=== PATIENT | male | born 1940 | race Caucasian/White ===

== ENCOUNTER 2017-02-22 16:42 | Inpatient (IN) | payer MEDICARE ==
[2017-02-22] MEDS ORDERED: ISOVUE-370 76%-LOCM 1 ML ONE (17:24)
[2017-02-22] MEDS ORDERED: Iopamidol 370 76% 50 ML VIAL FS ONE (17:24)
[2017-02-22 17:50] LABS: #Eosinphils 0.2 thou/uL (0.0-0.7); #Lymphocytes 1.9 thou/uL (1.20-3.40); #Monocytes 1.1 thou/uL (0.11-0.59); #Neutrophils 5.2 thou/uL (1.40-6.50); %Basophils 0.2 % (0.0-1.0); %Monocytes 12.9 % (0.0-10.0); Hematocrit 40.8 % (42.0-52.0); Mean Platelet Volume 7.4 fL (7.4-10.4); White Blood Cell (WBC) Count 8.4 thou/uL (4.8-10.8)
[2017-02-22 18:11] LABS: Lactic Acid - Sepsis 0.8 mmol/L (0.5-2.2)
[2017-02-22 18:15] LABS: ALT (SGPT) 16 U/L (8-55); AST (SGOT) 21 U/L (5-34); Alkaline Phosphatase 78 U/L (40-150); Anion Gap 12 mmol/L (10-20); BUN (Urea Nitrogen) 17 mg/dL (8.4-25.7); Bilirubin, Total 0.7 mg/dL (0.2-1.2); Calc. Creatinine Clearance 0 mL/min (70-130); Calcium 9.3 mg/dL (7.8-10.44); Carbon Dioxide 24 mmol/L (23-31); Chloride 101 mmol/L (98-107); Estimated GFR-MDRD 68; Globulin 3.1 g/dL (2.4-3.5); Protein, Total 7.3 g/dL (5.8-8.1)
--- NOTE | 2017-02-22 18:45 | ULT ---
ABDOMINAL ULTRASOUND: History: Palpable swelling, umbilical region, strangulated hernia. Technique: Multiple longitudinal and transverse images of the abdomen obtained using multihertz curvi linear transducer. Real-time, color flow, and spectral waveform doppler analysis demonstrates fatty c hanges seen in the liver. The gallbladder is unremarkable. The common bile duct is abnormal size brittany uring 5 mm. There is a large area of soft tissue density in the umbilical region compatible with herniated bowel. Some fluid is seen surrounding the bowel loops. I do not see definite evidence of blood flow. Hernia chriss and strangulated intestine cannot be excluded. IMPRESSION: Areas of soft tissue density are compatible with bowel. Rather this is small bowel or colon I cannot determine. Definitive blood flow is also not visualized. POS: [facility]
--- NOTE | 2017-02-22 19:02 | RAD ---
AP CHEST: FINDINGS: The lungs are well aerated. No evidence of active intrathoracic disease seen. No evidence of effusion s, pneumonia or pneumothorax is seen. IMPRESSION: Unremarkable AP chest. POS: [facility]
[2017-02-22 19:21] LABS: Bilirubin Negative (Negative); Blood, Urine Negative (Negative); Glucose, Urine (Dipstick) Negative (Negative); Ketone, Urine Negative (Negative); Nitrite Negative (Negative); Protein, Urine (Dipstick) Negative (Neg-Trace); Urobilinogen 0.2 mg/dL (0.2-1.0)
--- NOTE | 2017-02-22 21:29 | CT ---
CT ABDOMEN AND PELVIS WITH CONTRAST: Comparison: None. History: Abdominal pain. History of umbilical hernia and cellulitis around the hernia. Technique: Multiple contiguous axial images were obtained in a CT of the abdomen and pelvis with cont rast. PO contrast was administered. Coronal reformats were performed. FINDINGS: There is a 2.5 cm fat containing umbilical hernia. Stranding change is seen within the fat of this he rnia that extends into the abdomen. There is stranding change in the soft tissues surrounding the umb ilicus. No free air or free fluid are seen in the abdomen or pelvis. There are cysts in both kidneys measuring up to 5.5 cm in size. The liver, gallbladder, adrenal gland s, spleen and pancreas are unremarkable. There is scattered diverticula in the colon. The small bowel is normal in appearance. The appendix is normal. No abdominal or pelvic lymphadenopathy are seen. Atherosclerotic calcifications are seen in the aorta. IMPRESSION: 1. Fat containing umbilical hernia has surrounding inflammatory changes. This could represent an inca rcerated or strangulated fat containing hernia. There is no evidence of bowel obstruction. 2. Diverticulosis. 3. Bilateral renal cysts. POS: [facility]
[2017-02-22] MEDS ORDERED: Ondansetron ODT 4 MG TAB SL PRN (22:29)
[2017-02-22] MEDS ORDERED: Ondansetron HCl/PF 4 MG/2 ML Vial IVP PRN (22:29)
[2017-02-22] MEDS ORDERED: Acetaminophen 325 MG TAB PO PRN (22:29)
[2017-02-22] MEDS ORDERED: Sodium Chloride 0.9% 1,000 ML IV SCH (22:30)
[2017-02-22 23:10] VITALS: BMI 36.2
[2017-02-23] MEDS: CEFAZOLIN 1 GM, Syringe 2.5 ML in Sterile Water 7.5 ML SLOW IVP SCH ×4 (00:38→20:04)
[2017-02-23] MEDS ORDERED: Clopidogrel Bisulfate 75 MG TAB ONE (05:26)
[2017-02-23] MEDS ORDERED: FLU VACC TS2017-18 (>65YR) 0.5 ML SYRINGE IM ONE (09:00)
--- NOTE | 2017-02-23 09:01 | PRG ---
DATE OF SERVICE: 02/23/2017 SUBJECTIVE: This morning the patient is doing much better. Decreased belly pain. However, still te nder. OBJECTIVE: VITAL SIGNS: Temperature 98.1, pulse 80, respirations 20, pulse ox 94, blood pressure 144/77. HEART: Regular rate and rhythm. LUNGS: Clear. ABDOMEN: Soft. Moderate tenderness, tight umbilical hernia. LABORATORY: White count 8.4, H&H of 13 and 40. Sodium 133, potassium 4.3, creatinine 1.07, BUN 17. ASSESSMENT: 1. Incarcerated umbilical hernia with fat containing tissue, no bowel present. 2. Cellulitis of the abdominal wall. PLAN: 1. To the OR this morning by Dr. Thibodeaux. 2. Ancef 1 gram q.6h. 3. Continue to follow.
[2017-02-23] MEDS ORDERED: Ondansetron HCl/PF 4 MG/2 ML Vial IVP PRN (09:29)
[2017-02-23] MEDS ORDERED: Sodium Chloride 0.9% 1,000 ML IV SCH (09:30)
[2017-02-23] MEDS ORDERED: CEFAZOLIN/Water 2 GM/20 ML SYRINGE SLOW IVP SCH (09:30)
[2017-02-23] MEDS ORDERED: Fentanyl 100 MCG/2 ML VIAL ONE ×2 (10:46→15:59)
--- NOTE | 2017-02-23 11:33 | HP ---
DATE OF SERVICE: 02/23/2017 CHIEF COMPLAINT: Umbilical hernia. HISTORY OF PRESENT ILLNESS: The patient is a 76-year-old white male. He has had a known umbilical h ernia for quite a while. About 3 days ago, he developed protrusion of the umbilicus with discomfort. He had no nausea or vomiting. He actually golfed after onset of his discomfort. Yesterday, he pre sented to his primary care physician who saw the area noted some surrounding erythema. Patient denie d any nausea or vomiting. There was also a recent history of hematuria. Patient was referred to the emergency room. Laboratory studies and radiologic evaluation was performed. CBC revealed normal white blood cell count of 8.4, hemoglobin 13.4, normal differential. Chemistry p naomi was unremarkable with a normal lactate level. CT scan revealed evidence of a fat containing umb ilical hernia with surrounding stranding both within the abdominal wall and intra-abdominal consisten t with inflammatory change. Patient notes persistent discomfort, but nothing any worse. He denies any diffuse abdominal discomfo rt or vomiting. He has had no fevers. PAST MEDICAL HISTORY: 1. Hypertension. 2. Hypercholesterolemia. 3. Obesity. 4. Gastroesophageal reflux disease. PAST SURGICAL HISTORY: 1. Left total knee replacement. 2. Transurethral resection of the prostate. 3. Right inguinal hernia repair long time ago. CURRENT MEDICATIONS: Losartan, a statin medication, and Protonix. ALLERGIES: ZITHROMAX. PERSONAL/SOCIAL HISTORY: He is and is present at bedside. He has 1 child. 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 REVIEW OF SYSTEMS: Otherwise, unremarkable. FAMILY HISTORY: Noncontributory. PHYSICAL EXAMINATION: VITAL SIGNS: Temperature is 98.0, pulse 71, blood pressure 143/77. GENERAL: He is a well-developed, well-nourished, pleasant white male, resting in bed, in no acute di stress. He is alert and oriented x3. HEAD, EYES, EARS, NOSE AND THROAT: Unremarkable. NECK: Supple, without mass or tenderness. LUNGS: Clear to auscultation throughout. CARDIAC: Regular rate and rhythm without murmur. ABDOMEN: Soft and protuberant. He has an obvious umbilical hernia with mild surrounding erythema. There is a skin lesion to the left of the umbilicus that he states it has been taped where he tried t o tape a cover over his umbilical hernia. EXTREMITIES: Unremarkable. ASSESSMENT: Patient with incarcerated umbilical hernia. PLAN: Open repair with mesh. Mesh utilization will depend upon any infectious appearance at the gina e of surgery. If he has incarcerated or strangulated tissue/fat, this may preclude placement of mesh . Discussed all of this with the patient and his , they understand and agree to proceed. They u nderstand there is a small chance that we will not be able to salvage the umbilicus depending upon ap pearance at the time of surgery.
--- NOTE | 2017-02-23 15:10 | HP ---
HISTORY OF PRESENT ILLNESS: This is a 76-year-old white male with a history of blood in his urine. He was doing well until approximately 2 weeks ago he was developing blood-tinged urine. Lately, he h as been developing clots in his urine. He has had no difficulty urinating, but larger clots are form ing. He has no fever, nausea, vomiting. However, shortly before leaving the office, he shows his ab domen which he states has become tender. Upon examining his abdomen, it was significant for most lik aurea a strangulated umbilical hernia. PAST MEDICAL HISTORY: Hypertension, hyperlipidemia, reflux, prostatitis, hemorrhoids. PAST SURGICAL HISTORY: Hernia, colonoscopy, prostatectomy for BPH by Dr. Villarreal. FAMILY HISTORY: Mother with stomach cancer. A brother with brain aneurysm. Maternal grandmother wi th diabetes and multiple uncles with heart disease. SOCIAL HISTORY: He does not smoke. 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 He drinks socially. MEDICATIONS: Chondroitin daily, Centrum daily, aspirin 81 mg daily, omeprazole 20 daily, Flonase kenisha ly, Zyrtec daily, Lipitor 10 daily, and losartan 50 daily. ALLERGIES: ZITHROMAX. PHYSICAL EXAMINATION: VITAL SIGNS: Blood pressure 130/70, temperature 100, blood pressure 130/70, height 71, pulse ox 97. GENERAL: The patient in no acute distress. HEENT: Clear. HEART: Regular rate and rhythm. LUNGS: Clear. ABDOMEN: Tends approximately 15 cm circumferential area of erythema around the umbilicus and the umb ilicus is approximately 5 cm with an umbilical hernia. EXTREMITIES: With no edema. ASSESSMENT: 1. Acute abdomen. 2. Strangulated umbilical hernia, most likely possibly omental as opposed to intestinal. 3. Cellulitis of the abdominal wall. 4. Gross hematuria. PLAN: 1. The patient referred to the emergency room. 2. Discuss with Dr. Thibodeaux. 3. Most likely has a strangulated umbilical hernia which will require surgery. We must rule out oth er etiology as well.
[2017-02-23] MEDS ORDERED: Bupivacaine/Epinephrine 0.25% 30 ML VIAL ONE (15:53)
[2017-02-23] MEDS ORDERED: CEFAZOLIN/Water 2 GM/20 ML SYRINGE ONE (16:10)
[2017-02-23] MEDS ORDERED: Succinylcholine Chloride 20 MG/ML 10 ml SYRINGE FS ONE (16:12)
[2017-02-23] MEDS ORDERED: Lidocaine 1% PF 5 ML VIAL ONE (16:12)
[2017-02-23] MEDS ORDERED: Dexamethasone 20 MG/5 ML VIAL ONE (16:12)
[2017-02-23] MEDS ORDERED: Ondansetron HCl/PF 4 MG/2 ML Vial ONE (16:12)
[2017-02-23] MEDS ORDERED: Propofol 200 MG/20 ML VIAL ONE (16:12)
[2017-02-23] MEDS ORDERED: Glycopyrrolate 0.2 MG/ML 5 ML SYRINGE ONE (16:12)
[2017-02-23] MEDS ORDERED: Bacitracin Zinc Ointment 30 gm TUBE ONE (17:14)
[2017-02-23] MEDS ORDERED: Losartan Potassium 25 MG TAB PO SCH (19:15)
[2017-02-23 19:48] VITALS: BP 186/84; TEMP 98.1
--- NOTE | 2017-02-23 20:17 | OP ---
DATE OF PROCEDURE: 02/23/2017 PREOPERATIVE DIAGNOSIS: Incarcerated umbilical hernia with surrounding cellulitis. POSTOPERATIVE DIAGNOSIS: Incarcerated umbilical hernia with surrounding cellulitis with devasculariz ed segment of omental fat. OPERATION PERFORMED: Repair of incarcerated umbilical hernia without mesh. SURGEON: Amish Thibodeaux M.D. ANESTHESIA: General endotracheal. INDICATIONS: The patient is a 76-year-old obese white male. He presents with an obvious protruding and inflamed umbilical hernia. The external umbilicus measures about 4-5 cm in diameter. There is s urrounding cellulitis for several centimeters in each direction with inflammatory and edematous salinas es of the anterior abdominal wall. DESCRIPTION OF OPERATION: Informed consent was obtained. The patient was taken to the operating valente m where general endotracheal anesthesia was obtained with the patient in supine position. Abdomen wa s prepped with ChloraPrep and draped in sterile fashion. Local anesthetic was infiltrated using 0.25 % Marcaine with epinephrine. Curvilinear infraumbilical incision was created and dissection was cheney ied through skin and subcutaneous tissue. The hernia sac was identified. This was incised with elec trocautery. Preoperative imaging showed that there was only fatty tissue within the hernia sac. I e ntered the hernia sac. It proved that the peritoneum and the tissue around was extraordinarily thick ened. Hernia contents were fatty. I could not discern if this was epiploic appendages or omentum. There was some devascularized and early gangrenous changes, but without foul smell. The fatty tissue was divided at its base between clamps and 2-0 silk tie and passed off the field. The umbilicus was then fully elevated off the underlying fascia. The hernia defect was debrided to viable tissue. It was about 2 cm in diameter. The preperitoneal fatty tissue was quite thickened. I was able to easi ly bluntly dissect the preperitoneal tissue from the fascia. There was no purulence and no foul smel l, but given all of the inflammatory change, I could not be certain there was some degree of bacteria l load in this place. There was bacterial load in this location. I obtained cultures to check, but I closed the fascia without mesh using interrupted sutures of #1 Prolene placed in a [id number] fashion. A total of 4 of these sutures were placed. The umbilicus was then addressed. The thickene d hernia sac was dissected off the underside of the skin. In many places, this peeled away, but I us ed sharp dissection and electrocautery and removed the entire hernia sac. The umbilical skin was the n secured down to the fascia with 2 interrupted sutures of 3-0 Vicryl. The wound was thoroughly irri gated. All irrigant was aspirated. The wound was closed in layers with 3-0 and 4-0 Monocryl suture. Additional local anesthetic was infiltrated during closure. Dermabond was placed externally. Anti biotic ointment was placed within the umbilicus. The umbilicus had a bruised appearance and was inse rted. If this was bruised or this was resulting from stretched it was by the inflammatory process or if it was in fact devascularized in the process of dying. Cotton balls were placed within the umbil icus and Tegaderm was placed over the cotton balls, held in place with Mastisol. There were no compl ications. Blood loss was negligible. The patient tolerated the procedure well and was taken to [facility] very room in stable condition.
== END 2017-02-23 20:18 | disposition home or self-care (01) | DRG 354 ==
LOC: ERS 16:42 → SURG A 20:50
PROVIDERS: ADMIT Specialist; ATTEND Specialist
PROC: 0WQF0ZZ Repair Abdominal Wall, Open Approach (ICD-10-PCS; principal; 2017-02-23)
DX: K42.0 Umbilical hernia with obstruction, without gangrene (principal); L03.311 Cellulitis of abdominal wall; R31.0 Gross hematuria; I10 Essential (primary) hypertension; E78.5 Hyperlipidemia, unspecified; K21.9 Gastro-esophageal reflux disease without esophagitis; N41.9 Inflammatory disease of prostate, unspecified; K64.9 Unspecified hemorrhoids; R10.0 Acute abdomen; E66.9 Obesity, unspecified; Z68.36 Body mass index [BMI] 36.0-36.9, adult; Z96.652 Presence of left artificial knee joint; Z88.8 Allergy status to other drugs, medicaments and biological substances
CPT/HCPCS: 36415; 71010; 74177; 76705; 80053; 81003; 83605; 85025; 87040; 87070; 87205; 93005; 96365; A4216; J0690; J1100; J2001; J2405; J2704; J3010; J3370

== ENCOUNTER 2017-03-30 13:42 | Outpatient (CLI) | payer MEDICARE, OTHER ==
--- NOTE | 2017-04-02 07:18 | ULT ---
LOWER EXTREMITY ARTERIAL EVALUATION: Lower extremity arterial evaluation was performed with Doppler waveform analysis and segmental limb pressures. Review of this patient's waveforms shows normal arterial waveforms at rest in the bilateral lower ext remities at all levels. His ankle-arm index calculates to 1.29 on the right and 1.25 on the left wit h normal toe-brachial index. The study is a normal resting arterial study of the lower extremities and would not be consistent wit h any significant vascular claudication and would not be consistent with any resting ischemia.
== END 2017-03-30 13:43 | disposition home or self-care (01) ==
LOC: ULT 13:42
PROVIDERS: ATTEND Family Medicine
DX: R20.2 Paresthesia of skin (principal)
CPT/HCPCS: 93922

== ENCOUNTER 2017-06-09 10:15 | Outpatient (CLI) | payer OTHER | END 2017-06-09 10:16 | disposition home or self-care (01) | LOC: DTY/OP 10:15 | PROVIDERS: ATTEND Specialist | DX: Z01.818 Encounter for other preprocedural examination (principal); E66.01 Morbid (severe) obesity due to excess calories | CPT/HCPCS: 97802 ==

== ENCOUNTER 2017-06-25 09:49 | Outpatient (CLI) | payer MEDICARE ==
[2017-06-25 11:47] LABS: INR-International Normal Ratio 1.1; PTT 34.3 SEC (22.9-36.1)
[2017-06-25 11:50] LABS: Bilirubin Negative (Negative); Blood, Urine Negative (Negative); Clarity CLEAR (Clear); Glucose, Urine (Dipstick) Negative (Negative); Leukocyte Negative (Negative); Nitrite Negative (Negative); Protein, Urine (Dipstick) Negative (Neg-Trace); Urobilinogen 0.2 mg/dL (0.2-1.0); pH, Urine 7.5 (5.0-9.0)
[2017-06-25 11:54] LABS: Bacteria/HPF None Seen HPF (None Seen); Hyaline Casts/LPF 0-3 HYALINE CAST LPF (0-3 Hyaline); Pathc Cast-AUWi Flag 0.43 (0-2.49); RBC/HPF 0-3 HPF (0-3); Squamous Epithelial None Seen HPF (0-3); WBC/HPF None Seen HPF (0-3)
== END 2017-06-25 09:50 | disposition home or self-care (01) ==
LOC: LABBT 09:49
PROVIDERS: ATTEND Urology
DX: Z01.812 Encounter for preprocedural laboratory examination (principal); R82.8 Abnormal findings on cytological and histological examination of urine
CPT/HCPCS: 81001; 85610; 85730; 87086

== ENCOUNTER 2017-07-01 08:58 | Observation (INO) | payer MEDICARE ==
[2017-06-25 10:30] VITALS: BMI 38.5
[2017-07-01] MEDS ORDERED: Iothalamate Meglumine 60% 50 ML VIAL FS ONE (10:23)
[2017-07-01] MEDS ORDERED: Levofloxacin 500 mg/D5W 100 ml Premix Bag ONE (10:26)
[2017-07-01] MEDS ORDERED: Midazolam HCl 2 mg/2 ml Vial ONE (10:28)
[2017-07-01] MEDS ORDERED: Fentanyl 100 MCG/2 ML VIAL ONE (10:28)
[2017-07-01] MEDS ORDERED: Ondansetron HCl/PF 4 MG/2 ML Vial IVP PRN ×3 (12:20→12:52)
[2017-07-01] MEDS ORDERED: diphenhydrAMINE 25 MG CAP PO PRN (12:20)
[2017-07-01] MEDS ORDERED: Bisacodyl 10 MG SUPP PR PRN (12:20)
[2017-07-01] MEDS ORDERED: Oxybutynin 5 MG TAB PO PRN (12:20)
[2017-07-01] MEDS ORDERED: Hyoscyamine Sulfate SL 0.125 mg Tablet SL PRN (12:20)
[2017-07-01] MEDS ORDERED: Morphine 4 MG/ML VIAL SLOW IVP PRN ×2 (12:20)
[2017-07-01] MEDS ORDERED: Mag-Al 1200 mg/1200 mg/30 ML UDCUP PO PRN (12:20)
[2017-07-01] MEDS ORDERED: hydrALAZINE 20 MG/ML VIAL SLOW IVP PRN (12:20)
[2017-07-01] MEDS ORDERED: ESOMEPRAZOLE MAGNESIUM PO SCH ×2 (12:30)
[2017-07-01] MEDS ORDERED: metroNIDAZOLE 500 MG TAB PO SCH (12:30)
[2017-07-01] MEDS ORDERED: Promethazine HCl 25 MG/ML VIAL IM PRN ×2 (12:52)
[2017-07-01] MEDS ORDERED: Promethazine HCl 25 MG/ML VIAL SLOW IVP PRN ×2 (12:52)
--- NOTE | 2017-07-01 13:53 | OP ---
DATE OF PROCEDURE: 07/01/2017 SERVICE: Urology. SURGEON: Alex Bush M.D. PREOPERATIVE DIAGNOSIS: Abnormal urine cytology. POSTOPERATIVE DIAGNOSES: Abnormal urine cytology with prostatic regrowth. PROCEDURES PERFORMED: Bladder biopsy with transurethral resection of prostate and abnormal tissue with bilateral selective cytologies INDICATIONS FOR PROCEDURE: Mr. Blount is a 76-year-old white male who came to see me for hematuria. His workup demonstrated no findings within the bladder or kidneys on CT; however, his urine cytology came out abnormal. He had a positive FISH test subsequently and I recommended bringing him to the operating room for selective cytologies and bladder biopsies. Risks and benefits have been discussed and he has agreed to proceed forward. DESCRIPTION OF PROCEDURE: After identification of armband and verification of consent, the patient was brought back to the operating room where he underwent general anesthesia with an LMA. He was then placed in dorsal lithotomy position and prepped and draped in usual sterile fashion. After appropriate timeout, a lubricated 22 Faroese rigid cystoscope was introduced per urethra into the bladder. The prostate was extremely obstructive again. However, the patient did not really have significant problems urinating preoperatively. The right ureteral orifice was identified and cannulated with a 5 Faroese Pollack catheter, 5 mL of sterile saline was injected into the kidney and ureter and allowed to wash back out and collected in a specimen cup which was sent off for right selective cytology. The left ureter could not be identified due to the significant regrowth of prostate in the left lateral lobe. Despite multiple attempts to reach it, it was unsuccessful. I then decided to take a random bladder biopsies. There was some erythematous tissue in the posterior bladder wall which was biopsied. The remainder of the bladder wall appeared completely normal without any abnormality whatsoever. I did not feel it was really necessary to perform biopsies on these areas as there is nothing of concern; however, the prostatic urethra demonstrated abnormal polypoid-like tissue which was extremely difficult to obtain through cold cup biopsy forceps due to the amount of regrowth and coaptation of the prostate. As such, I thought it would be better and more reliable to obtain a resectoscope, which would completely remove the polypoid looking tissue as well as get adequate specimens for pathologic evaluation. Therefore, the cystoscope was removed and resectoscope was placed with obturator back into the bladder. The gyrus bipolar resectoscope loop was then loaded and the lateral lobe of the prostate was shaved down. The bulk of the regrown prostate on the left lateral lobe was removed, but a full TURP was not performed as I had not discussed this with the patient. Once enough of the prostate had been resected back to expose the left ureteral orifice, I felt we could perform a selective cytology on that side. The polypoid tissue was seen growing on the posterior part of the mid portion of the prostatic urethra. This was resected and sent off for routine pathologic evaluation. Meticulous hemostasis was performed with the coag function on the bipolar and subsequently all the prostate chips were evacuated using the [employer] evacuator and the resectoscope sheath. Once all the chips were removed, the resectoscope was removed and the 22-Faroese cystoscope was introduced back per urethra into the bladder. The right ureteral orifice was still in its orthotopic location unharmed. The left ureteral orifice was cannulated with a 5 Faroese Pollack catheter and approximately 5-7 mL of sterile water flushed into the renal pelvis. This was allowed to drain back out into the specimen cup which was sent off for left selective cytology. The cystoscope was then used to fill the bladder and a final cystoscopy did not demonstrate any residual prostate chips. The cystoscope was then removed and a 22-Faroese three-way Sanderson catheter was placed per urethra into the bladder. 30 mL of sterile water was placed into the balloon. CBI was initiated and the patient was then taken out of stirrups, awakened and taken to PACU for recovery in stable condition. COMPLICATIONS: None. ESTIMATED BLOOD LOSS: Minimal. RETAINED TUBES AND DRAINS: A 22-Faroese 3-way Sanderson catheter. SPECIMENS: Bilateral selective cytologies, bladder biopsy, prostatic urethral biopsy and TURP chips. DISPOSITION: The patient will be kept in the hospital for 23-hour observation for hematuria. Once he has passed a void trial, we will send him home tomorrow. SUSAN
[2017-07-01 14:02] LABS: Anion Gap 13 mmol/L (10-20); BUN (Urea Nitrogen) 25 mg/dL (8.4-25.7); Calc. Creatinine Clearance 128 mL/min (70-130); Carbon Dioxide 26 mmol/L (23-31); Chloride 107 mmol/L (98-107); Estimated GFR-MDRD 82; Glucose 116 mg/dL (83-110); Potassium 4.5 mmol/L (3.5-5.1); Sodium 141 mmol/L (136-145)
[2017-07-01] MEDS ORDERED: Lidocaine 1% PF 5 ML VIAL ONE (16:41)
[2017-07-01] MEDS ORDERED: Dexamethasone 20 MG/5 ML VIAL ONE ×2 (16:41)
[2017-07-01] MEDS ORDERED: PROPOFOL 200 MG/20 ML VIAL ONE (16:41)
[2017-07-01] MEDS: Docusate 100 MG CAP PO SCH (20:17)
[2017-07-02 04:34] LABS: #Lymphocytes 1.3 thou/uL (1.20-3.40); #Monocytes 0.8 thou/uL (0.11-0.59); #Neutrophils 7.4 thou/uL (1.40-6.50); %Basophils 0.1 % (0.0-1.0); %Eosinophils 0.5 % (0.0-10.0); %Lymphocytes 13.9 % (21.0-51.0); %Neutrophils 77.5 % (42.0-75.0); Hemoglobin 13.2 g/dL (14.0-18.0); Mean Corpuscular HGB CONC 33.5 g/dL (32.0-36.0); Mean Corpuscular Hemoglobin 30.6 pg (27.0-31.0); Mean Corpuscular Volume 91.1 fl (80.0-94.0); Mean Platelet Volume 7.1 fL (7.4-10.4); Platelet Count 286 thou/uL (130-400); RBC Distribution Width 12.3 % (11.5-14.5); Red Blood Cell (RBC) Count 4.32 mill/uL (4.70-6.10); White Blood Cell (WBC) Count 9.6 thou/uL (4.8-10.8)
[2017-07-02 04:46] LABS: Anion Gap 11 mmol/L (10-20); BUN (Urea Nitrogen) 22 mg/dL (8.4-25.7); Calc. Creatinine Clearance 145 mL/min (70-130); Calcium 9.2 mg/dL (7.8-10.44); Carbon Dioxide 25 mmol/L (23-31); Chloride 106 mmol/L (98-107); Estimated GFR-MDRD Greater than 90; Glucose 122 mg/dL (83-110); Potassium 3.9 mmol/L (3.5-5.1); Sodium 138 mmol/L (136-145)
[2017-07-02] MEDS ORDERED: traMADol HCl 50 MG TAB PO PRN (08:38)
[2017-07-02] MEDS ORDERED: Atorvastatin Calcium 10 MG TAB PO SCH (09:00)
[2017-07-02] MEDS ORDERED: Losartan 25 MG TAB PO SCH ×2 (09:00)
[2017-07-02] MEDS ORDERED: Calcium/Multivitamins W-Iron 1 TAB TAB PO SCH (09:00)
--- NOTE | 2017-07-02 09:20 | PRG ---
DATE OF SERVICE: 07/02/2017 SUBJECTIVE: The patient states he is feeling good, has no complaints overnight. No bladder spasms, chest pain or shortness of breath. OBJECTIVE: VITAL SIGNS: Temperature 98, pulse 67, respirations 18, blood pressure 146/75, saturation 94% on valente m air. GENERAL: No apparent distress, communicative and alert. CARDIOVASCULAR: Regular rate and rhythm. ABDOMEN: Soft, nontender, nondistended. GENITOURINARY: Sanderson catheter in place, secured. CBI is currently off. Urine is completely clear w ith very little blood. EXTREMITIES: No clubbing, cyanosis or edema. SCDs in place. LABORATORY DATA: The full set of labs in the [facility] system, which I have reviewed. Of note, the p eliazar's hemoglobin is currently 13.2 with a creatinine of 0.79. ASSESSMENT AND PLAN: A 76-year-old white male with BPH without obstruction and abnormal urine cytolo gy with discovery of what appeared to be a papillary lesion along the floor of the prostatic urethra. He underwent a modified transurethral resection of the prostate with resection of the diseased area and regrowth of some of the prostate. He has done very well at this point and I will have his luisa ter removed and have him do a voiding trial with serial urine collection. Assuming normal voiding wi th reasonable amounts of hematuria, the patient can probably be discharged home and follow up with me on an outpatient basis. I will plan to see him back in approximately 1-2 weeks to go over his patho logy results and ensure that he is healing appropriately from his surgery.
[2017-07-02] MEDS: Docusate 100 MG CAP PO SCH (09:38)
[2017-07-02 12:39] VITALS: BP 155/77; TEMP 98.2
[2017-07-02] MEDS ORDERED: Doxycycline 100 MG CAP PO SCH (21:00)
== END 2017-07-02 14:00 | disposition home or self-care (01) ==
LOC: SDC 08:58 → SURG A 11:50
PROVIDERS: ADMIT Urology; ATTEND Urology
PROC: 0TBB8ZX Excision of Bladder, Via Natural or Artificial Opening Endoscopic, Diagnostic (ICD-10-PCS; principal; 2017-07-01)
PROC: 0VT08ZZ Resection of Prostate, Via Natural or Artificial Opening Endoscopic (ICD-10-PCS; 2017-07-01)
DX: N30.90 Cystitis, unspecified without hematuria (principal); N34.2 Other urethritis; N40.0 Benign prostatic hyperplasia without lower urinary tract symptoms; I10 Essential (primary) hypertension; E78.5 Hyperlipidemia, unspecified; K21.9 Gastro-esophageal reflux disease without esophagitis; Z79.899 Other long term (current) drug therapy; Z88.1 Allergy status to other antibiotic agents; Z96.652 Presence of left artificial knee joint; Z90.79 Acquired absence of other genital organ(s); Z87.891 Personal history of nicotine dependence
CPT/HCPCS: 52204; 52630; 80048 ×2; 85025; 88112; 88305; 96365; C1758; C1769; G0378; 36415; J1100; J1956; J2001; J2250; J2704; J3010; Q9961

== ENCOUNTER 2017-08-16 08:49 | Outpatient (CLI) | payer MEDICARE | END 2017-08-16 08:50 | disposition home or self-care (01) | LOC: CTENTCT 08:49 | PROVIDERS: ATTEND Otolaryngology Plastic Surgery within the Head & Neck | DX: H71.90 Unspecified cholesteatoma, unspecified ear (principal) | CPT/HCPCS: 70486 ==

== ENCOUNTER 2017-11-22 06:54 | Day surgery (SDC) | payer MEDICARE, OTHER ==
[2017-11-19 08:53] VITALS: BMI 36.2
[2017-11-22] MEDS ORDERED: Lidocaine 1% w/Epinephrine 1:100K 30 ML VIAL ONE (07:13)
[2017-11-22] MEDS ORDERED: Sodium Chloride 0.9% 10 ML ONE (07:13)
[2017-11-22] MEDS ORDERED: EPINEPHrine 1 MG/ML AMP ONE (07:13)
[2017-11-22] MEDS ORDERED: Bacitracin Zinc Ointment 30 gm TUBE ONE (07:13)
[2017-11-22] MEDS ORDERED: Ciprofloxacin 0.2% Otic 1 DROP CON ONE (07:13)
[2017-11-22] MEDS ORDERED: Bupivacaine/Epinephrine 0.25% 30 ML VIAL ONE (07:13)
[2017-11-22 07:37] LABS: Hemoglobin 13.3 g/dL (14.0-18.0)
[2017-11-22 08:01] LABS: Anion Gap 14 mmol/L (10-20); BUN (Urea Nitrogen) 18 mg/dL (8.4-25.7); Calc. Creatinine Clearance 111 mL/min (70-130); Calcium 9.2 mg/dL (7.8-10.44); Carbon Dioxide 24 mmol/L (23-31); Chloride 107 mmol/L (98-107); Estimated GFR-MDRD 76; Glucose 122 mg/dL (83-110); Potassium 4.5 mmol/L (3.5-5.1); Sodium 140 mmol/L (136-145)
[2017-11-22] MEDS ORDERED: CEFAZOLIN/Water 2 GM/20 ML SYRINGE ONE (08:57)
[2017-11-22] MEDS ORDERED: Fentanyl 100 MCG/2 ML VIAL ONE (08:59)
[2017-11-22] MEDS ORDERED: Propofol 1,000 MG/100 ML VIAL IV ONE (09:08)
[2017-11-22] MEDS ORDERED: Gelfilm 1 EA Packet ONE (10:54)
--- NOTE | 2017-11-22 12:37 | OP ---
DATE OF PROCEDURE: 11/22/2017 PREOPERATIVE DIAGNOSIS: Left cholesteatoma. POSTOPERATIVE DIAGNOSIS: Left cholesteatoma. PROCEDURE: 1. Left tympanoplasty mastoidectomy without ossicular chain reconstruction. 2. Mastoid obliteration. 3. Microscopic surgical procedure. 4. Facial nerve monitoring for 2 hours. SURGEON: Donato Nicole M.D. ANESTHESIA: General. COMPLICATIONS: None. ESTIMATED BLOOD LOSS: 5 mL. SPECIMENS: None. ASSISTANTS: None. DISPOSITION: Stable to recovery room. Extensive cholesteatoma with the anterior mount going into the eustachian tube attic, a mount under w hich was eroded the head of the malleus and incus. The stapes suprastructure was intact and left suc h. Stapes superstructure moved well and there was cholesteatoma distributed throughout the middle ea r space without a covering surface. Therefore, more as a diffuse fluffy appearance. We removed the vast majority of it, ____ the facial recess was widely opened. Chorda tympani sacrificed. What was left was a long process of the malleus, the stapes suprastructure which moved well. Repaired this ar ea with 2 pieces of Silastic, cartilage, bone dust in the attic and fascia of the TM. Definitely wou ld like to do a staged reconstruction and probably at about a year cholesteatoma could be literally a nywhere. PROCEDURE IN DETAIL: 1. Left tympanoplasty mastoidectomy without ossicular chain reconstruction: After informed consent was obtained, the patient was taken to the operating room and placed in supine position. General end otracheal anesthetic was administered. Table was rotated 180 degrees. Left ear was injected postaur icular and transcanal 0.25% Marcaine with epinephrine. Left ear prepped and draped in the sterile fa shion. Microscope was brought into view, injected the canal with 1% lidocaine with epinephrine. Fla ps were elevated from 3 o'clock circumferentially to 8 o'clock. Postauricular incision made with a 1 0 blade and carried down. Cartilage was harvested and was temporalis fascia. Pericranial flap eleva chriss based anterior cortical mastoid. Facial recess and extensive attic dissection was performed. As mentioned above, cholesteatoma was in the attic, the attic portion of the mastoid and into the hypot ympanum, although this area was more of a diffuse noncohesive amount of cholesteatoma and then an enc apsulated amount, which was going into the eustachian tube. These were all removed and repaired as d escribed above. 2. Mastoid obliteration. Bone dust, which had been harvested at the beginning of the operation was placed and packed densely in the attic, repaired exposed areas of the tegmen which were exposed into the attic due to the very tight nature of the mastoid and also to the support and prevent retraction of recurrence through the ear drum. PROCEDURE #3: Microscopic surgical procedure: Throughout the entirety of the operation microscope w as an integral part of procedure used from 2 to 14 power and high illumination. PROCEDURE #4: Facial nerve monitoring for 2 hours: After induction, EMG electrodes were placed in o rbicularis oculi and orbicularis lana, attached to the nerve integrity monitoring system, set respons e threshold of 100 microvolts and stimulus of 0.8. There was no unsuspected stimulus and the facial nerve remained in the fallopian canal throughout the entirety of the procedure. The facial nerve was clearly identified from the tensor tympani all the way to near the stylomastoid foramen. The integr ity of the facial nerve was not specifically noted in the mesotympanum whether it was a dehisced or i nside the canal totally. Postauricular incision was closed with 2-0 and 3-0 Monocryl, Dermabond for the skin. Gelfoam filled the ear canal up laterally as well as bacitracin ointment and a cotton ball. The patient tolerated this procedure well and was turned over to Anesthesia in stable condition.
--- NOTE | 2017-11-23 17:41 | EKG ---
Test Reason : PREOP Blood Pressure : / mmHG Vent. Rate : 057 BPM Atrial Rate : 057 BPM P-R Int : 198 ms QRS Dur : 148 ms QT Int : 466 ms P-R-T Axes : 033 029 054 degrees QTc Int : 453 ms Sinus bradycardia Right bundle branch block Abnormal ECG When compared with ECG of 22-FEB-2017 17:41, No significant change was found Confirmed by DR. Cait GIL ([id number]) on 11/23/2017 5:40:34 PM Referred By: GRAEME Confirmed By:DR. Cait GLI
== END 2017-11-22 13:30 | disposition home or self-care (01) ==
LOC: SDC 06:54
PROVIDERS: ATTEND Otolaryngology Otology & Neurotology
PROC: 0NB60ZZ Excision of Left Temporal Bone, Open Approach (ICD-10-PCS; principal; 2017-11-22)
PROC: 09Q60ZZ Repair Left Middle Ear, Open Approach (ICD-10-PCS; 2017-11-22)
DX: H71.02 Cholesteatoma of attic, left ear (principal); H69.80 Other specified disorders of Eustachian tube, unspecified ear; H91.90 Unspecified hearing loss, unspecified ear; H65.20 Chronic serous otitis media, unspecified ear; I10 Essential (primary) hypertension; E78.5 Hyperlipidemia, unspecified; K21.9 Gastro-esophageal reflux disease without esophagitis; Z87.891 Personal history of nicotine dependence; Z79.82 Long term (current) use of aspirin; Z79.899 Other long term (current) drug therapy; Z88.1 Allergy status to other antibiotic agents
CPT/HCPCS: 80048; 85014; 85018; 93005; 93010; A4216; J0171; J2001; J2704; J3010; J3490

== ENCOUNTER 2018-01-02 18:28 | Emergency (ER) | payer MEDICARE, OTHER ==
--- NOTE | 2018-01-02 19:12 | RAD ---
RIGHT WRIST THREE VIEWS: INDICATIONS: Right wrist injury. COMPARISON: None. FINDINGS: There is severe first CMC and STT osteoarthrosis. There are degenerative subchondral cyst-like abnormalities seen along the ulnar aspect of the distal hamate. C arpal alignment is within normal limits. No acute fracture or subluxation is evident. Subchondral c yst-like abnormalities are seen within the dorsal lunate. IMPRESSION: 1. No acute osseous abnormality. 2. 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 POS: [facility]
== END 2018-01-02 19:38 | disposition home or self-care (01) ==
LOC: ERS 18:28
DX: S63.501A Unspecified sprain of right wrist, initial encounter (principal); K21.9 Gastro-esophageal reflux disease without esophagitis; E78.5 Hyperlipidemia, unspecified; I10 Essential (primary) hypertension; Z79.82 Long term (current) use of aspirin; Z79.899 Other long term (current) drug therapy; W01.0XXA Fall on same level from slipping, tripping and stumbling without subsequent striking against object, initial encounter; Y92.34 Swimming pool (public) as the place of occurrence of the external cause
CPT/HCPCS: 29125

== ENCOUNTER 2019-05-01 07:42 | Outpatient (CLI) | payer MEDICARE, OTHER ==
[2019-05-01 11:19] LABS: Hemoglobin 13.6 g/dL (14.0-18.0); Mean Corpuscular HGB CONC 33.7 g/dL (32.0-36.0); Mean Corpuscular Volume 92.1 fL (78.0-98.0); Mean Platelet Volume 7.9 fL (7.4-10.4); Platelet Count 233 thou/uL (130-400); RBC Distribution Width 12.7 % (11.5-14.5); Red Blood Cell (RBC) Count 4.39 mill/uL (4.70-6.10); White Blood Cell (WBC) Count 5.6 thou/uL (4.8-10.8)
[2019-05-01 11:25] LABS: Bacteria/HPF None Seen HPF (None Seen); Bilirubin Negative (Negative); Blood, Urine Negative (Negative); Clarity Clear (Clear); Glucose, Urine (Dipstick) Normal (Negative); Leukocyte Negative Leu/uL (Negative); Nitrite Negative (Negative); Protein, Urine (Dipstick) Negative (Neg-Trace); RBC/HPF None Seen HPF (0-3); Squamous Epithelial None Seen HPF (0-3); Urobilinogen Normal mg/dL (Less than 2); WBC/HPF None Seen HPF (0-3)
[2019-05-01 11:34] LABS: PTT 31.8 SEC (22.9-36.1); Prothrombin Time 12.8 SEC (12.0-14.7)
[2019-05-01 11:44] LABS: Anion Gap 12 mmol/L (10-20); BUN (Urea Nitrogen) 18 mg/dL (8.4-25.7); Calc. Creatinine Clearance 0 mL/min (70-130); Calcium 9.1 mg/dL (7.8-10.44); Carbon Dioxide 27 mmol/L (23-31); Chloride 105 mmol/L (98-107); Estimated GFR-MDRD 66; Glucose 94 mg/dL (83-110); Potassium 4.2 mmol/L (3.5-5.1); Sodium 140 mmol/L (136-145)
--- NOTE | 2019-05-01 16:45 | EKG ---
Test Reason : Blood Pressure : / mmHG Vent. Rate : 065 BPM Atrial Rate : 065 BPM P-R Int : 190 ms QRS Dur : 150 ms QT Int : 440 ms P-R-T Axes : 028 005 041 degrees QTc Int : 457 ms Normal sinus rhythm Right bundle branch block Abnormal ECG Confirmed by EUN LOCKWOOD ([id number]) on 05/01/2019 4:44:54 PM Referred By: YASMIN Confirmed By:EUN LOCKWOOD
== END 2019-05-01 07:43 | disposition home or self-care (01) ==
LOC: LABBT 07:42
PROVIDERS: ATTEND Urology
DX: Z01.818 Encounter for other preprocedural examination (principal); N40.1 Benign prostatic hyperplasia with lower urinary tract symptoms
CPT/HCPCS: 80048; 81001; 85027; 85610; 85730; 87086; 93005; 93010

== ENCOUNTER 2019-05-04 12:57 | Observation (INO) | payer MEDICARE, OTHER ==
[2019-05-01 08:54] VITALS: BMI 36.2
[~2019-05-04 12:57] MED LIST: Dexamethasone 20 MG/5 ML VIAL ONE; EPHEDRINE 25 MG/5 ML SYRINGE ONE; Glycopyrrolate 0.2 MG/ML 5 ML SYRINGE ONE; Ondansetron PF 4 MG/2 ML Vial ONE; PROPOFOL 200 MG/20 ML VIAL ONE; Rocuronium Bromide 10 MG/ML (10ML VIAL) ONE; diphenhydrAMINE 50 MG/ML VIAL ONE
[2019-05-04] MEDS ORDERED: Levofloxacin 500 mg/D5W 100 ml Premix Bag ONE ×2 (13:10→14:37)
[2019-05-04] MEDS ORDERED: B & O ONE (15:00)
[2019-05-04] MEDS ORDERED: Fentanyl 100 MCG/2 ML VIAL ONE (15:30)
[2019-05-04] MEDS ORDERED: Mag-Al 1200 mg/1200 mg/30 ML UDCUP PO PRN (15:37)
[2019-05-04] MEDS ORDERED: Morphine 2 MG/ML SYRINGE SLOW IVP PRN (15:37)
[2019-05-04] MEDS ORDERED: Phenazopyridine HCl 97.5 MG TABLET PO PRN (15:37)
[2019-05-04] MEDS ORDERED: Hyoscyamine Sulfate SL 0.125 mg Tablet SL PRN (15:37)
[2019-05-04] MEDS ORDERED: hydrALAZINE 20 MG/ML VIAL SLOW IVP PRN (15:37)
[2019-05-04] MEDS ORDERED: Ondansetron PF 4 MG/2 ML Vial IVP PRN (15:37)
[2019-05-04] MEDS ORDERED: Oxybutynin 5 MG TAB PO PRN (15:37)
[2019-05-04] MEDS ORDERED: Bisacodyl 10 MG SUPP PR PRN (15:37)
[2019-05-04] MEDS ORDERED: Acetaminophen 500 MG TAB PO PRN (15:37)
[2019-05-04] MEDS ORDERED: diphenhydrAMINE 25 MG CAP PO PRN (15:37)
[2019-05-04] MEDS ORDERED: traMADol HCl 50 MG TAB PO PRN (15:39)
[2019-05-04] MEDS ORDERED: Ondansetron HCl/PF 4 MG/2 ML Vial IVP PRN (17:56)
--- NOTE | 2019-05-04 18:11 | OP ---
DATE OF PROCEDURE: 05/04/2019 SERVICE: Urology. PREOPERATIVE DIAGNOSIS: BPH regrowth. POSTOPERATIVE DIAGNOSIS: BPH regrowth. PROCEDURE PERFORMED: Repeat transurethral resection of prostate. INDICATION FOR PROCEDURE: Mr. Blount is a 78-year-old white male, whom I currently follow for bladder cancer and positive cytology. He has previously undergone a TURP many years ago with Dr. Villarreal, and as part of his workup for positive cytology, I did do a repeat TURP, although it was limited mainly for pathologic evaluation. The patient does have significant urinary complaints with obstruction, and on cysto, has significant regrowth of his prostate. We elected to perform a TURP to open his prostate up and allow for better urination. Risks and benefits were discussed, and he has agreed to proceed forward. DESCRIPTION OF PROCEDURE: After identification of armband and verification of consent, the patient was brought back to the operating room. He underwent general anesthesia with an LMA. He was then left in the supine position and placed in dorsal lithotomy position. After appropriate time-out, a lubricated 26-Sudanese resectoscope sheath was passed with ease through the urethra into the bladder. The prostate was extremely hypertrophic, had previously been demonstrated on outpatient cystoscopy. Using the prostate bipolar resectoscope loop, resection was started at the bladder neck with a large intravesical median lobe and shaved down circumferentially all the way to the verumontanum. There was a significant amount of prostate removed. Both ureters were identified and marked medial and distal to the actual ureteral orifice for identification. After resection for almost 2 hours, it was felt that the prostate was wide open. There was still adenomatous tissue left, but given the length of the surgery, I felt it would be best to terminate the procedure at this point to avoid complications in the operating room or postoperatively. The prostate was extremely wide open. Meticulous hemostasis was performed, and all the prostate chips were removed and sent for routine pathologic evaluation. Upon completion, the prostate was wide open, although again there is a fairly substantial amount of prostate tissue still left. I do feel this should keep patency for a good amount of time hopefully for the remainder of the patient's life. Satisfied after that all the bleeding had been controlled, the resectoscope was removed and a 22-Sudanese three-way Sanderson catheter was placed in the patient's bladder with 30 mL of sterile water in the balloon. CBI was initiated. The patient had B and O suppository placed and was taken out of positioning, awakened, and taken to PACU for recovery in stable condition. COMPLICATIONS: None. BLOOD LOSS: Minimal. RETAINED TUBES AND DRAINS: A 22-Sudanese three-way Sanderson catheter. SPECIMENS: Prostate chips. DISPOSITION: The patient will be kept in the hospital overnight for CBI. We will plan a void trial in the morning. His outpatient care will be handled after discharge pending a void trial in the hospital tomorrow. Job ID: [id number]
[2019-05-04] MEDS: Docusate 100 MG CAP PO SCH (21:25)
[2019-05-05 05:21] LABS: #Monocytes 0.5 thou/uL (0.11-0.59); #Neutrophils 7.8 thou/uL (1.40-6.50); %Eosinophils 0.1 % (0.0-10.0); %Monocytes 5.4 % (0.0-10.0); %Neutrophils 83.4 % (42.0-75.0); Hemoglobin 12.8 g/dL (14.0-18.0); Mean Corpuscular HGB CONC 34.4 g/dL (32.0-36.0); Mean Corpuscular Hemoglobin 31.3 pg (27.0-31.0); Mean Corpuscular Volume 91.1 fL (78.0-98.0); Mean Platelet Volume 7.7 fL (7.4-10.4); Platelet Count 241 thou/uL (130-400); RBC Distribution Width 12.4 % (11.5-14.5); White Blood Cell (WBC) Count 9.4 thou/uL (4.8-10.8)
[2019-05-05 05:43] LABS: Anion Gap 10 mmol/L (10-20); BUN (Urea Nitrogen) 13 mg/dL (8.4-25.7); Calc. Creatinine Clearance 113 mL/min (70-130); Calcium 8.7 mg/dL (7.8-10.44); Carbon Dioxide 26 mmol/L (23-31); Chloride 105 mmol/L (98-107); Estimated GFR-MDRD 79; Glucose 160 mg/dL (83-110); Potassium 4.3 mmol/L (3.5-5.1); Sodium 137 mmol/L (136-145)
[2019-05-05] MEDS: Docusate 100 MG CAP PO SCH (08:47)
[2019-05-05] MEDS ORDERED: Losartan 25 MG TAB PO SCH (09:00)
[2019-05-05] MEDS ORDERED: Atorvastatin Calcium 10 MG TAB PO SCH (09:00)
[2019-05-05 15:23] VITALS: BP 147/77; TEMP 97.6
--- NOTE | 2019-05-05 16:07 | PRG ---
DATE OF SERVICE: 05/05/2019 SUBJECTIVE: The patient states he is feeling good. He has no bladder spasms or complaints. His CBI was stopped this morning. He denies any chest pain or shortness of breath. OBJECTIVE: VITAL SIGNS: Temperature 98.4, pulse 84, respirations 18, blood pressure 125/76, and saturation 98% on room air. GENERAL: No apparent distress, communicative, and alert. CARDIOVASCULAR: Regular rate and rhythm. ABDOMEN: Soft, nontender, and nondistended. : Sanderson catheter in place with light red urine, which is translucent. EXTREMITIES: No edema. LABORATORY EVALUATION: The full set of labs are in the [facility] system, which I have reviewed. Of note, the patient's white count is 9.4, hemoglobin of 12.8, and creatinine of 0.93. ASSESSMENT AND PLAN: This is a 78-year-old white male with history of bladder cancer and positive cytology with severe benign prostatic hyperplasia and nodular regrowth and urinary complaints, status post redo transurethral resection of the prostate of regrowth nodular tissue. We will plan a void trial today pending he is able to void. I have gone over all his discharge instructions with him and we will see him back in 1 to 2 weeks for a postop check. Job ID: [id number]
[2019-05-05] MEDS ORDERED: Prevnar 13-Val Conj/PF 0.5 ML SYRINGE IM ONE (21:00)
[2019-05-05] MEDS ORDERED: FLU VACC TS2019-20(65YR UP)/PF 180 MCG/0.5 ML SYRINGE IM ONE (21:00)
--- NOTE | 2019-05-05 21:33 | DIS ---
DATE OF ADMISSION: 05/04/2019 DATE OF DISCHARGE: 05/05/2019 ADMITTING DIAGNOSIS: BPH with positive cytology. DISCHARGE DIAGNOSIS: BPH with positive cytology. PROCEDURE PERFORMED: While inpatient is cystoscopy with transurethral resection of the prostate. BRIEF HISTORY: Mr. Blount is a 78-year-old white male with a history of bladder cancer. We have been following him outpatient for a positive cytology. He had previously undergone staging TURP and bladder biopsies, which did not demonstrate any etiology of his positive cytology. The patient does have severe regrowth of his prostate with urinary complaints. On most recent surveillance cystoscopy, he had elected to undergo a TURP. We discussed the procedure and the full H and P can be found in the scanned portion of the [facility] system. HOSPITAL COURSE: After surgery (please see operative note for details) the patient was kept in the hospital overnight with CBI. The CBI was stopped in the morning with light red urine. The patient had his catheter removed and was able to void spontaneously with light red urine without significant clots. The patient felt good enough that he could be discharged home and was sent home without any further issues. DISPOSITION: Discharged to home. DISCHARGE CONDITION: Good. DISCHARGE MEDICATIONS: Please see med rec. DISCHARGE INSTRUCTIONS: Explained to the patient and included in the online discharge summaries mainly avoidance of constipation, no blood thinners, no heavy lifting or strenuous activities, and drink plenty of water. I will see him back in 1 to 2 weeks for postop check. Job ID: [id number]
== END 2019-05-05 16:40 | disposition home or self-care (01) ==
LOC: SDC 12:57 → SURG A 15:41
PROVIDERS: ADMIT Urology; ATTEND Urology
PROC: 0VB08ZZ Excision of Prostate, Via Natural or Artificial Opening Endoscopic (ICD-10-PCS; principal; 2019-05-04)
DX: N40.1 Benign prostatic hyperplasia with lower urinary tract symptoms (principal); N39.41 Urge incontinence; I10 Essential (primary) hypertension; E78.5 Hyperlipidemia, unspecified; K21.9 Gastro-esophageal reflux disease without esophagitis; E66.9 Obesity, unspecified; Z68.36 Body mass index [BMI] 36.0-36.9, adult; Z79.82 Long term (current) use of aspirin; Z79.899 Other long term (current) drug therapy; Z87.891 Personal history of nicotine dependence; Z88.1 Allergy status to other antibiotic agents
CPT/HCPCS: 52630; 80048; 85025; 88305; 96365; G0378 ×2; 36415; J1100; J1200; J1956; J2405; J2704; J3010

== ENCOUNTER 2022-02-10 15:38 | Emergency (ER) | payer OTHER, MEDICARE ==
[2022-02-10] MEDS ORDERED: HYDROcodone/Acetaminophen 5/325 mg Tablet ONE (17:29)
[2022-02-10] MEDS ORDERED: Morphine 4 MG/ML VIAL ONE (17:59)
[2022-02-10] MEDS ORDERED: Ondansetron ODT 4 MG TAB ONE (18:06)
[2022-02-10] MEDS ORDERED: FENTANYL 50 MCG/ML 1 ML VIAL ONE (18:59)
[2022-02-10] MEDS ORDERED: Boostrix 0.5 ML (Tdap) VIAL (>/=7 yrs of age) ONE (19:05)
== END 2022-02-10 18:58 | disposition home or self-care (01) ==
LOC: ERS 15:38
DX: S52.571A Other intraarticular fracture of lower end of right radius, initial encounter for closed fracture (principal); K21.9 Gastro-esophageal reflux disease without esophagitis; E78.00 Pure hypercholesterolemia, unspecified; I10 Essential (primary) hypertension; Z79.899 Other long term (current) drug therapy; Z79.82 Long term (current) use of aspirin; W01.0XXA Fall on same level from slipping, tripping and stumbling without subsequent striking against object, initial encounter
CPT/HCPCS: 29105; 73110; 90471; 90715; 96372; 99283; J3010; J2270; Q0162

== ENCOUNTER 2022-06-05 15:24 | Outpatient (CLI) | payer MEDICARE, OTHER ==
[2022-06-05 16:37] LABS: #Eosinphils 0.2 10x3/uL (0.0-0.5); #Monocytes 0.7 10x3/uL (0.0-1.1); #Neutrophils 3.1 10x3/uL (1.5-8.4); %Basophils 0.2 % (0.0-2.0); %Eosinophils 3.5 % (0.0-6.0); %Neutrophils 56.7 % (40.0-75.0); Hemoglobin 11.6 g/dL (13.5-17.5); Mean Corpuscular HGB CONC 32.5 g/dL (32.0-36.0); Mean Corpuscular Hemoglobin 29.4 pg (27.0-33.0); Mean Corpuscular Volume 90.6 fl (81.2-95.1); Mean Platelet Volume 10.1 fl (7.4-10.4); Platelet Count 241 10x3/uL (150-450); RBC Distribution Width 13.3 % (11.5-14.5); Red Blood Cell (RBC) Count 3.94 10x6/uL (4.32-5.72); White Blood Cell (WBC) Count 5.4 10x3/uL (3.5-10.5)
== END 2022-06-05 15:25 | disposition home or self-care (01) ==
LOC: LABBT 15:24
PROVIDERS: ATTEND Orthopaedic Surgery Hand Surgery
DX: Z01.812 Encounter for preprocedural laboratory examination (principal); G56.01 Carpal tunnel syndrome, right upper limb; S52.501P Unspecified fracture of the lower end of right radius, subsequent encounter for closed fracture with malunion; S63.8X1D Sprain of other part of right wrist and hand, subsequent encounter
CPT/HCPCS: 85025; 93005; 93010

== ENCOUNTER 2022-06-09 07:59 | Day surgery (SDC) | payer MEDICARE, OTHER ==
[2022-06-08 10:44] VITALS: BMI 34.8
[2022-06-09] MEDS ORDERED: Dexamethasone 4 mg/ml Vial ONE (09:33)
[2022-06-09] MEDS ORDERED: Midazolam HCl 2 mg/2 ml Vial ONE (09:33)
[2022-06-09] MEDS ORDERED: fentaNYL 50 mcg/mL 1 mL Vial ONE ×3 (09:33→10:01)
[2022-06-09] MEDS ORDERED: Bupivacaine PF 0.5% 30 ML VIAL ONE ×2 (09:33→09:40)
[2022-06-09] MEDS ORDERED: EPINEPHrine 1 MG/ML AMP ONE (09:40)
[2022-06-09] MEDS ORDERED: Neomycin-Polymyxin 1 ML AMP ONE (09:41)
[2022-06-09] MEDS ORDERED: Bacitracin Zinc Ointment 30 gm TUBE ONE (09:41)
[2022-06-09] MEDS ORDERED: Thrombin 5000 UNITS/5 ML VIAL ONE (09:41)
[2022-06-09] MEDS ORDERED: CEFAZOLIN 2 GM VIAL ONE (10:05)
[2022-06-09] MEDS ORDERED: Sodium Chloride 0.9% 100 ML ONE (10:05)
[2022-06-09] MEDS ORDERED: Ondansetron PF 4 MG/2 ML Vial ONE (10:13)
[2022-06-09] MEDS ORDERED: PROPOFOL 200 MG/20 ML VIAL ONE (10:13)
[2022-06-09] MEDS ORDERED: Lidocaine 1% PF 5 ML VIAL ONE (10:13)
[2022-06-09] MEDS ORDERED: ePHEDrine 50 MG/ML VIAL ONE (10:13)
== END 2022-06-09 16:38 | disposition home or self-care (01) ==
LOC: SDC 07:59
PROVIDERS: ATTEND Orthopaedic Surgery Hand Surgery
PROC: 0RBN4ZZ Excision of Right Wrist Joint, Percutaneous Endoscopic Approach (ICD-10-PCS; principal; 2022-06-09)
PROC: 01N50ZZ Release Median Nerve, Open Approach (ICD-10-PCS; 2022-06-09)
PROC: 0PSH04Z Reposition Right Radius with Internal Fixation Device, Open Approach (ICD-10-PCS; 2022-06-09)
PROC: 0LB50ZZ Excision of Right Lower Arm and Wrist Tendon, Open Approach (ICD-10-PCS; 2022-06-09)
PROC: 01N50ZZ Release Median Nerve, Open Approach (ICD-10-PCS; 2022-06-09)
DX: S52.511P Displaced fracture of right radial styloid process, subsequent encounter for closed fracture with malunion (principal); M65.88 Other synovitis and tenosynovitis, other site; G56.11 Other lesions of median nerve, right upper limb; G56.01 Carpal tunnel syndrome, right upper limb; G56.21 Lesion of ulnar nerve, right upper limb; I10 Essential (primary) hypertension; E78.5 Hyperlipidemia, unspecified; K21.9 Gastro-esophageal reflux disease without esophagitis; Z66 Do not resuscitate; Z87.891 Personal history of nicotine dependence; Z79.82 Long term (current) use of aspirin; Z79.899 Other long term (current) drug therapy; Z88.1 Allergy status to other antibiotic agents; X58.XXXD Exposure to other specified factors, subsequent encounter
CPT/HCPCS: 25115; 25400; 29846; 64721; 73100; C1713 ×3; J3010; J0171; J1100; J2250; J2405; J2704; J3490; S0020